=== PATIENT | female | born 1945 | race Caucasian/White ===

== ENCOUNTER 2019-05-16 08:39 | Day surgery (SDC) | payer OTHER ==
[~2019-05-16] VITALS: Ht 160 cm; Wt 53.9 kg
[2019-05-16] MEDS ORDERED: ALEN70 (09:52)
[2019-05-16] MEDS ORDERED: MELO7.5 (09:52)
== END 2019-05-16 10:47 | disposition home or self-care (01) ==
LOC: ORSCSDS 08:39
PROVIDERS: Internal Medicine Gastroenterology
PROC: 0DJD8ZZ Inspection of Lower Intestinal Tract, Via Natural or Artificial Opening Endoscopic (ICD-10-PCS; principal; 2019-05-16 10:00)
DX: Z12.11 Encounter for screening for malignant neoplasm of colon (principal); K64.8 Other hemorrhoids; Z79.899 Other long term (current) drug therapy
CPT/HCPCS: J2704; J7120

== ENCOUNTER 2024-12-20 08:32 | Day surgery (SDC) | payer OTHER ==
[~2024-12-20] VITALS: Ht 160 cm; Wt 53.9 kg
[~2024-12-20 08:32] MED LIST: ALBU90OI INH; ALEN70; Balanced Salt Epinephrine Irrigation Solution 500 mL IR SCH; LINZESS72 MCG PO; Lidocaine HCl/Pf 1% 5 ML VIAL ONE; Lidocaine HCl/Pf 1% 5 ML VIAL XX SCH; MELO7.5; Moxifloxacin HCL 0.5 MG/0.1 ML 0.4MLSYR RIGHTEYE SCH; PHENYLEPHRINE\\TROPICAMIDE\\TETRACAINE OPHTHALMIC DILATING SOLN RIGHTEYE PRN; Povidone-Iodine 450 DROP/30 ML Solution ONE; Povidone-Iodine 450 DROP/30 ML Solution RIGHTEYE SCH; Tetracaine HCl/Pf 0.5% Opth Soln 4 ml ONE
[2024-12-20] MEDS ORDERED: Midazolam HCl 1MG / ML 2ML Vial ONE (09:03)
[2024-12-20 09:46] VITALS: BP 128/58
--- NOTE | 2024-12-20 10:05 | NUR ---
12/20/24 1006 Halima Collier PT DROWSY, BUT ASKED QUESTIONS DURING DISCHARGE INSTRUCTIONS. ABLE TO TRANSFER TO CHAIR AND WHEELCHAIR. PT WAS ABLE TO STAND UP AND PUT COAT ON. PT DISCHARGED WITH GLASSES AND PURSE. REVIEWED INSTRUCTIONS WITH FRIEND WELL.
== END 2024-12-20 10:04 | disposition home or self-care (01) ==
LOC: ORSCSDS 08:32
PROVIDERS: Student in an Organized Health Care Education/Training Program
PROC: 08RJ3JZ Replacement of Right Lens with Synthetic Substitute, Percutaneous Approach (ICD-10-PCS; principal; 2024-12-20 10:00)
DX: H25.813 Combined forms of age-related cataract, bilateral (principal); H04.123 Dry eye syndrome of bilateral lacrimal glands; Z79.899 Other long term (current) drug therapy
CPT/HCPCS: J2003; J2250; V2632

== ENCOUNTER 2024-12-28 09:29 | Day surgery (SDC) | payer OTHER ==
[~2024-12-28] VITALS: Ht 160 cm; Wt 53.1 kg
[~2024-12-28 09:29] MED LIST changes: -Lidocaine HCl/Pf 1% 5 ML VIAL ONE; +Moxifloxacin HCL 0.5 MG/0.1 ML 0.4MLSYR LEFTEYE SCH; -Moxifloxacin HCL 0.5 MG/0.1 ML 0.4MLSYR RIGHTEYE SCH; +NS 0 ML IV ONE; +NS 500 ML IV ONE; +PHENYLEPHRINE\\TROPICAMIDE\\TETRACAINE OPHTHALMIC DILATING SOLN LEFTEYE PRN; -PHENYLEPHRINE\\TROPICAMIDE\\TETRACAINE OPHTHALMIC DILATING SOLN RIGHTEYE PRN; +Povidone-Iodine 450 DROP/30 ML Solution LEFTEYE SCH; -Povidone-Iodine 450 DROP/30 ML Solution RIGHTEYE SCH
[2024-12-28] MEDS ORDERED: LINZESS72 MCG PO (10:17)
[2024-12-28] MEDS ORDERED: NS 500 ML IV ONE (10:25)
[2024-12-28] MEDS ORDERED: Midazolam HCl 1MG / ML 2ML Vial ONE (10:59)
[2024-12-28] MEDS ORDERED: Tetracaine HCl 0.5% Opth Soln 15 ml LEFTEYE ONE (11:00)
[2024-12-28 11:19] VITALS: BP 127/61
== END 2024-12-28 11:37 | disposition home or self-care (01) ==
LOC: ORSCSDS 09:29
PROVIDERS: Student in an Organized Health Care Education/Training Program
PROC: 08RK3JZ Replacement of Left Lens with Synthetic Substitute, Percutaneous Approach (ICD-10-PCS; principal; 2024-12-28 11:00)
DX: H25.812 Combined forms of age-related cataract, left eye (principal); Z96.1 Presence of intraocular lens; J45.909 Unspecified asthma, uncomplicated; Z79.899 Other long term (current) drug therapy
CPT/HCPCS: J2250; J7040; V2632

== ENCOUNTER → 2025-05-09 | Outpatient (CLI) | payer OTHER ==
[~2025-05-09] MED LIST changes: -Balanced Salt Epinephrine Irrigation Solution 500 mL IR SCH; -Lidocaine HCl/Pf 1% 5 ML VIAL XX SCH; -Moxifloxacin HCL 0.5 MG/0.1 ML 0.4MLSYR LEFTEYE SCH; -NS 0 ML IV ONE; -NS 500 ML IV ONE; -PHENYLEPHRINE\\TROPICAMIDE\\TETRACAINE OPHTHALMIC DILATING SOLN LEFTEYE PRN; -Povidone-Iodine 450 DROP/30 ML Solution LEFTEYE SCH; -Povidone-Iodine 450 DROP/30 ML Solution ONE; -Tetracaine HCl/Pf 0.5% Opth Soln 4 ml ONE
[2025-05-11 19:50] LABS: CALPROTECTIN,FECAL 11 ug/g (<=49)
== END | disposition home or self-care (01) ==
LOC: LAB 08:45 → LAB SHORT 08:45
PROVIDERS: Family Medicine
DX: R19.7 Diarrhea, unspecified (principal)
CPT/HCPCS: 83993; 87015; 87045; 87046; 87205; 87899